=== PATIENT | male | born 1980 | race Caucasian/White ===

== ENCOUNTER 2023-09-16 12:07 | Emergency (ER) | payer SELFPAY ==
[~2023-09-16] VITALS: Ht 175.3 cm; Wt 90.0 kg
[2023-09-16 12:19] VITALS: O2SAT 98
[2023-09-16] MEDS ORDERED: HYDROCODONE/ACETAMINOPHEN 5/325MG TABLET PO ONE (14:15)
[2023-09-16] MEDS ORDERED: KETOROLAC 30MG/ML VIAL IM ONE (14:15)
[2023-09-16] MEDS ORDERED: INDO-13 MT (16:02)
[2023-09-16 16:11] VITALS: BP 135/82; PULSE 89; RESP 16; TEMP 97.9
[2023-09-16] MEDS ORDERED: KETOROLAC 30MG/ML VIAL IM NR (16:15)
[2023-09-16] MEDS ORDERED: HYDROCODONE/ACETAMINOPHEN 5/325MG TABLET PO NR (16:15)
== END 2023-09-16 16:12 | disposition home or self-care (01) ==
LOC: ER 12:07
DX: M79.671 Pain in right foot (principal)
CPT/HCPCS: 99283; 96372; J1885